=== PATIENT | female | born 1950 | race Caucasian/White ===

== ENCOUNTER 2021-09-03 15:09 | Emergency (ER) | payer OTHER ==
[~2021-09-03 15:09] MED LIST: BUSPIRONE HCL15 MG PO; CARISOPRODOL350 MG PO; CETIRIZINE HCL10 MG PO; GABAPENTIN100 MG PO; HCTZ25 MG PO; HYDROCODON-ACE1 EAC3 PO; LOPRESSOR50 MG PO; MOBIC7.5 MG PO; NEURONTIN300 MG PO; NORCO 5/3251 EACH PO; NORVASC5 MG PO; PRINIVIL20 MG PO; SYNTHROID100 MCG PO
[2021-09-03 17:10] LABS: BASOPHIL 0.8 % (0-2); HCT 43.2 % (37.0-47.0); HGB 15.4 g/dl (12.5-16.0); LYMPHOCYTE 27.5 % (15-48); MCH 32.2 pg (25.0-31.0); MCHC 35.6 g/dL (32.0-36.0); MCV 90.4 fL (78.0-100.0); MONOCYTE 5.4 % (0-12); MPV 10.2 fL (6.0-9.5); NRBC 0; PLT 256 K/uL (150-400); RBC 4.78 M/uL (4.20-5.40); RDW 14.1 % (11.5-14.0); WBC 9.8 K/uL (4.0-10.5)
[2021-09-03 17:41] LABS: ALBUMIN 4.5 g/dL (3.4-5.0); BILIRUBIN - TOTAL 0.4 mg/dL (0.2-1.0); BUN/CREAT RATIO (CALC) 19.4 RATIO; CREATININE 0.72 mg/dL (0.51-0.95); GLOBULIN (CALCULATION) 3.8 g/dL; POTASSIUM 4.1 mmol/L (3.5-5.1); TOTAL PROTEIN 8.3 g/dL (6.4-8.2)
== END 2021-09-03 18:50 | disposition home or self-care (01) ==
LOC: FER 15:09
PROVIDERS: Emergency Medicine
DX: I10 Essential (primary) hypertension (principal); R51.9 Headache, unspecified; I48.91 Unspecified atrial fibrillation; E03.9 Hypothyroidism, unspecified; Z79.890 Hormone replacement therapy; Z79.01 Long term (current) use of anticoagulants; Z79.899 Other long term (current) drug therapy; Z88.1 Allergy status to other antibiotic agents
CPT/HCPCS: 36415; 70450; 80053; 84484; 85025; 93005; J1885; J2270